=== PATIENT | male | born 1985 | race Caucasian/White ===

== ENCOUNTER 2020-06-27 01:16 | Emergency (ER) | payer BC, SELFPAY ==
--- NOTE | ~2020-06-27 | CT_ITS ---
EXAMINATION: CTA brain carotid DATE: 06/27/2020 02:52 INDICATION: Headache. Dizziness. TECHNIQUE: Computed tomographic angiography (CTA) of the head was performed without and with 100 mL O mnipaque-350 intravenous contrast. CTA of the neck was performed with intravenous contrast. Automated exposure control and iterative reconstruction technique were employed. The dose-length product was 2 900.92 mGy-cm. Maximum intensity projection and volume rendered 3D-reconstructions were created by titus gonzalez technologist on a separate workstation. COMPARISON: None. FINDINGS: HEAD CTA: There is no intracranial hemorrhage, acute infarction, or abnormal intracranial mass lesion . The ventricles are normal in size. The orbits are normal. There is mild mucosal thickening in the e thmoid sinuses. The mastoid air cells are normal. Right vertebral artery is dominant. There is no sig nificant stenosis of basilar artery or the posterior cerebral arteries. There is no significant steno sis of the intracranial internal carotid arteries or anterior or middle cerebral arteries. The counseling case manager ior communicating arteries are normal. Anterior communicating artery is normal. There is no aneurysm. NECK CTA: There are no pathologically enlarged lymph nodes. There is no significant stenosis of the v ertebral arteries. There is no visible plaque in the proximal internal carotid arteries. There is 0% stenosis of the proximal right internal carotid artery relative to normal distal artery lumen diamete r (NASCET criteria). There is 0% stenosis of the proximal left internal carotid artery relative to no rmal distal artery lumen diameter. There is moderate cervical spondylosis. IMPRESSION: 1. Normal brain. No aneurysm or significant intracranial arterial stenosis. 2. 0% stenosis of the proximal internal carotid arteries relative to normal distal artery lumen diame ters (NASCET criteria). Reviewed, dictated and finalized at location A. IMPRESSION: 1. Normal brain. No aneurysm or significant intracranial arterial stenosis. 2. 0% stenosis of the proximal internal carotid arteries relative to normal dis jaime artery lumen diameters (NASCET criteria).
[2020-06-27 01:18] VITALS: BP 166/96; PULSE 75; RESP 18; TEMP 36.8; O2SAT 100
--- NOTE | 2020-06-27 01:21 | ED.HA ---
HPI - Headache General Chief Complaint: Headache Stated Complaint: headache Time Seen by Provider: 06/27/20 01:21 Source: patient and family Mode of arrival: ambulatory Limitations: no limitations History of Present Illness HPI Narrative: Patient is a 34-year-old male with a history of hypertension, not currently being treated with any antihypertensives, who presents for evaluation of headache pain. Patient reports he has had intermittent headache pain over the past 4 days, states that the headache began on Saturday described as a pressure over the right side of his forehead with radiation behind his eye, and extending into the left forehead and left mosque. Patient was seen under [facility], no imaging was done, patient was given a COVID swab which he does not know the results of, and advised to follow-up with his primary care doctor. Patient took Tylenol on Saturday with some improvement in his symptoms, but then awakened Saturday morning with a severe headache. Patient denies any neck pain, fever, vision changes, nausea or vomiting. 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 Related Data Home Medications Medication Instructions Recorded Confirmed No Home Medications 11/28/19 11/28/19 Allergies Allergy/AdvReac Type Severity Reaction Status Date / Time No Known Allergies Allergy Verified 11/28/19 14:50 Review of Systems Review of Systems: Narrative: CONSTITUTIONAL: Denies fever, chills, or sweats. EYES: Denies visual changes, redness, or discharge. ENT: Denies rhinorrhea, congestion, sore throat, or otalgia. CARDIOVASCULAR: Denies chest pain, palpitations, or edema. RESPIRATORY: Denies cough or dyspnea. GASTROINTESTINAL: Denies abdominal pain, nausea, vomiting, or diarrhea. GENITOURINARY: Denies dysuria or hematuria. SKIN: Denies rash or itching. MUSCULOSKELETAL: Denies back pain, joint pain, or myalgia. NEUROLOGIC: Reports headache, denies numbness, or weakness. PSYCHIATRIC: Reports history of anxiety PMFSH Past Medical History Medical History (Updated 06/27/20 @ 03:31 by Ebony Beatty MD) Hypertension Surgical History Surgical History (Updated 06/27/20 @ 01:49 by Ebony Beatty MD) H/O Spinal surgery Social History Social History Smoking status: Never smoker Exam Narrative: Exam Narrative: GENERAL: Awake, alert, conversant HEAD: Normocephalic, atraumatic. EYES: 2+ PERRLA and EOMI. ENT: Nares clear, no rhinorrhea or epistaxis. Mucous membranes moist. NECK: Supple. CHEST: No respiratory distress, breathing even and non labored HEART: Regular rate, sinus rhythm ABDOMEN:Non distended, non tender EXTREMITIES: Normal range of motion. No edema. SKIN: Warm, dry, no rash. NEURO:No focal deficits. Alert and oriented x3. EOMs intact without nystagmus. No facial droop/asymmetry noted bilaterally. Grimace intact. Intact sensation in face. Hearing intact bilaterally. Shoulder shrug intact. Strength 5/5 bilateral upper extremities. Strength 5/5 bilateral lower extremities. Reflexes 2+ patellar. Ambulatory with a narrow base, steady gait, no ataxia. Course Vital Signs Vital signs: Vital Signs Temperature 36.8 C 06/27/20 01:18 Pulse Rate 75 06/27/20 01:18 Respiratory Rate 18 06/27/20 01:18 Blood Pressure 166/96 H 06/27/20 01:18 Pulse Oximetry 100 06/27/20 01:18 Temperature 36.8 C 06/27/20 01:18 Pulse Rate 75 06/27/20 01:18 Respiratory Rate 18 06/27/20 01:18 Blood Pressure 166/96 H 06/27/20 01:18 Pulse Oximetry 100 06/27/20 01:18 MDM - Headache Differential Diagnosis Differential diagnosis: Likely migraine, tension headache, headache and sinusitis Lab Data Attestation: I reviewed the patient's lab results. Result diagrams: 06/27/20 01:52 06/27/20 01:52 Labs: Lab Results 06/27/20 06/27/20 06/27/20 Range/Units 01:52 01:52 01
[2020-06-27 02:02] LABS: Basophils Percent Auto 0.4 % (0.2-1.2); Eosinophils Absolute Auto 0.1 K/mm3 (0-0.3); Eosinophils Percent Auto 1.4 % (0-4.4); Hematocrit 44.3 % (42.0-52.0); Hemoglobin 15.5 g/dL (14.0-18.0); Immature Granulocyte Absolute 0.04 K/mm3 (0.00-0.031); Immature Granulocyte Percent A 0.4 % (0-0.5); Lymphocytes Absolute Auto 3.49 K/mm3 (0.9-3.2); Lymphocytes Percent Auto 35.9 % (18.3-44.2); Mean Corpuscular Hemoglobin 30.7 pg (26-34); Mean Corpuscular Volume 87.7 fl (80-100); Mean Platelet Volume 11.3 fl (7.4-10.4); Monocytes Absolute Auto 0.9 K/mm3 (0.1-0.6); Monocytes Percent Auto 9.2 % (2.6-8.5); Neutrophils Absolute Auto 5.1 K/mm3 (1.3-6.7); Neutrophils Percent Auto 52.7 % (45.5-73.1); Platelet Count Result 286 k/mm3 (150-375); Red Blood Count 5.05 M/mm3 (4.6-6.20); Red Cell Distribution Width 12.4 % (11.5-14.5); White Blood Count 9.7 K/mm3 (4.5-10.0)
[2020-06-27] MEDS: SODIUM CHLORIDE 0.9% IV 1,000 ML 999 ML IV CONT (02:08)
[2020-06-27] MEDS: METOCLOPRAMIDE HCL INJ 10 MG/2 ML VIAL IV PUSH (02:08)
[2020-06-27] MEDS: diphenhydrAMINE HCl INJ 50 MG/ML VIAL 25 MG IV PUSH (02:09)
[2020-06-27] MEDS: MAGNESIUM SULF 2 GM/WATER 50ML 2 GM/50 ML BAG IVPB (02:09)
[2020-06-27 02:19] LABS: Anion Gap 12 mmol/L (8-16); Blood Urea Nitrogen 12 mg/dL (9-20); Calcium 9.3 mg/dL (8.4-10.2); Carbon Dioxide 23 mmol/L (22-30); Chloride 102 mmol/L (98-107); Estimated Glomerular Filt Rate > 60; Glucose 118 mg/dL (75-110); Sodium 137 mmol/L (137-145)
[2020-06-27 02:40] LABS: CRP 0.6 mg/dL (<1.0)
[2020-06-27 02:42] VITALS: BP 132/77; PULSE 69; RESP 18; O2SAT 99
[2020-06-27 03:28] LABS: Erythrocyte Sedimentation Rate 7 mm/hr (0-20)
[2020-06-27] MEDS: POTASSIUM CHLORIDE 20 MEQ PACKET (FOR LIQUID) PO (03:47)
[2020-06-27 03:48] VITALS: BP 129/88; PULSE 72; RESP 16; O2SAT 99
== END 2020-06-27 03:49 | disposition home or self-care (01) ==
PROVIDERS: Emergency Provider Emergency Medicine
DX: G43.909 Migraine, unspecified, not intractable, without status migrainosus (principal)
CPT/HCPCS: 36415; 70496; 70498; 80048; 85025; 85652; 86140; 96365; 96375; 99284; A9270; J1100; J1200; J2765; J3475; J7030; Q9967